=== PATIENT | female | born 1955 | race Caucasian/White ===

== ENCOUNTER 2022-03-28 05:55 | Emergency (ER) | payer OTHER, MEDICAID ==
[~2022-03-28] VITALS: Ht 167.6 cm; Wt 141.0 kg
[2022-03-28 07:48] LABS: BASOPHILS % 0.4 % (0.0-2.0); EOSINOPHILS % 0.3 % (0.0-5.0); HEMATOCRIT. 47.5 % (36.0-48.0); HEMOGLOBIN. 15.7 g/dL (12.0-16.0); LYMPHOCYTES % 13.3 % (20.0-50.0); MEAN CORPUSCULAR HEMOGLOBIN 31.2 pg (28.0-32.0); MEAN CORPUSCULAR VOLUME 94.4 fL (81.0-99.0); MONOCYTES % 3.6 % (2.0-8.0); NEUTROPHILS % 82.4 % (40.0-76.0); RED BLOOD CELL COUNT 5.03 mill/uL (4.2-5.4); RED CELL DISTRIBUTION WIDTH 14.5 % (11.6-14.6)
[2022-03-28 07:55] LABS: CHLORIDE 105 mEq/L (98-107)
[2022-03-28 08:02] LABS: ETHANOL BLOOD < 10 mg/dL
[2022-03-28] MEDS ORDERED: ETOMIDATE 2MG/ML 10ML VIAL IV ONE (08:19)
[2022-03-28] MEDS ORDERED: SUCCINYLCHOLINE CHLORIDE 200MG/10ML IV ONE (08:19)
[2022-03-28 08:28] LABS: PLATELET ESTIMATE NORMAL
[2022-03-28 08:34] LABS: MEAN PLATELET VOLUME 7.3 fl (7.4-10.4); PLATELET 323 x1000/uL (130-400)
[2022-03-28] MEDS: SODIUM CHLORIDE 0.9% 1,000 ML IV ONE (08:39)
[2022-03-28 09:51] LABS: PROTHROMBIN TIME 10.4 sec (9.6-11.0)
[2022-03-28] MEDS: LABETALOL 5MG/ML SYR 20 MG/4 ML SYRINGE IV NR (10:00)
[2022-03-28] MEDS ORDERED: PROPOFOL 10MG/ML 100ML 100 ML IV ONE (10:00)
[2022-03-28] MEDS: PROPOFOL 10MG/ML 100ML 100 ML IV ONE (10:05)
[2022-03-28] MEDS: NICARDIPINE 100 MG in SODIUM CHLORIDE 0.9% 60 ML IV ONE (10:05)
[2022-03-28] MEDS: SUCCINYLCHOLINE CHLORIDE 200MG/10ML IV ONE (10:14)
[2022-03-28 11:02] LABS: CLARITY URINE CLEAR (CLEAR); COLOR URINE ORANGE (YELLOW); KETONES URINE 1+ (NEGATIVE); LEUKOCYTE ESTERASE URINE NEGATIVE (NEGATIVE); NITRITE URINE NEGATIVE (NEGATIVE); OCCULT BLOOD URINE 3+ (NEGATIVE); PH URINE 6.5 (4.5-8.0); PROTEIN URINE 2+ (NEGATIVE); SPECIFIC GRAVITY URINE 1.012 (1.005-1.030); UROBILINOGEN URINE 0.2 E.U./dL (0.2-1.0)
[2022-03-28] MEDS ORDERED: NICARDIPINE 100 MG in SODIUM CHLORIDE 0.9% 60 ML IV NR (11:15)
[2022-03-28] MEDS ORDERED: IOHEXOL-350 100 ML BOTTLE ONE (11:35)
[2022-03-28 11:51] LABS: *AMPHETAMINES SCREEN URINE NEGATIVE (NEGATIVE); *BARBITURATES SCREEN URINE NEGATIVE (NEGATIVE); *BENZODIAZEPINES SCREEN URINE NEGATIVE (NEGATIVE); *COCAINE SCREEN URINE NEGATIVE (NEGATIVE); CANNABINOID URINE SCREEN NEGATIVE (NEGATIVE); METHADONE URINE SCREEN NEGATIVE (NEGATIVE); OPIATES URINE SCREEN NEGATIVE (NEGATIVE); PHENCYCLIDINE URINE SCREEN NEGATIVE (NEGATIVE)
[2022-03-28] MEDS ORDERED: NICARDIPINE 40MG/200ML PREMIX 200 ML IV STA (11:51)
[2022-03-28 12:10] VITALS: BP 126/76
== END 2022-03-28 12:09 | disposition short-term general hospital (02) ==
LOC: ER 05:55
DX: I60.9 Nontraumatic subarachnoid hemorrhage, unspecified (principal); I10 Essential (primary) hypertension; Z68.43 Body mass index [BMI] 50.0-59.9, adult; Z20.822 Contact with and (suspected) exposure to COVID-19
CPT/HCPCS: 31500; 36415; 70450; 70496; 71045; 80053; 80305; 80307; 80320; 80329; 81003; 82140; 82962; 83605; 84484; 85025; 85610; 87040; 87426; 93005; 96361; 96365; 96375; 99291; C9803; J0330; J2704; J3490; J7030; J7050; Q9967; 94002; A4315; G0480